=== PATIENT | female | born 1950 | race Caucasian/White ===

== ENCOUNTER 2017-01-06 23:16 | Emergency (ER) | payer OTHER ==
[~2017-01-06] VITALS: Ht 160 cm; Wt 108.9 kg
[2017-01-06 23:17] VITALS: BP 191/105
[2017-01-06] MEDS ORDERED: IPRATROPIUM 0.5MG/ALBUTEROL 2.5MG INH SOL UD 3ML (DUONEB)(J7620) NEB ONE (23:30)
[2017-01-06] MEDS ORDERED: methylPREDNISolone INJ 125 MG/2 ML VIAL (J2930) IV ONE (23:30)
[2017-01-06] MEDS ORDERED: ALBU17IN INH (23:33)
[2017-01-06] MEDS ORDERED: ADV250INH INH (23:33)
[2017-01-06 23:56] LABS: BASO # 0.1 K/mm3 (0.0-0.2); BASO % 0.7 % (0.0-1.0); EOS # 0.2 K/mm3 (0.0-0.50); EOS % 2.8 % (0.0-3.0); LARGE UNSTAINED CELL # 0.2 K/mm3 (0.0-0.4); LARGE UNSTAINED CELL % 2.3 % (0.0-4.0); LYMPH # 4.3 K/mm3 (1.5-4.5); LYMPH % 47.8 % (24.0-44.0); MEAN CORPUSCULAR HEMOGLOBIN 28.6 pg (27.0-33.0); MEAN CORPUSCULAR HGB CONC 32.3 g/dl (32.0-36.5); MEAN CORPUSCULAR VOLUME 88.4 fl (80.0-96.0); MONO # 0.2 K/mm3 (0.0-0.8); MONO % 2.8 % (0.0-5.0); NEUTROPHILS # 3.7 K/mm3 (1.8-7.7); NEUTROPHILS % 43.4 % (36.0-66.0); PLATELET COUNT, AUTOMATED 240 k/mm3 (150-450); RED CELL DISTRIBUTION WIDTH 12.6 % (11.5-14.5); WHITE BLOOD COUNT 8.5 K/mm3 (4.0-10.0)
[2017-01-07] MEDS ORDERED: IPRATROPIUM 0.5MG/ALBUTEROL 2.5MG INH SOL UD 3ML (DUONEB)(J7620) NEB ONE
[2017-01-07 00:13] LABS: ANION GAP 11 MEQ/L (8-16); BLOOD UREA NITROGEN 14 MG/DL (7-18); CALCIUM LEVEL 9.1 MG/DL (8.8-10.2); CARBON DIOXIDE LEVEL 25 MEQ/L (21-32); CHLORIDE LEVEL 103 MEQ/L (98-107); CREATININE FOR GFR 0.98 MG/DL (0.55-1.02); GLOMERULAR FILTRATION RATE > 60.0 (>45); GLUCOSE, FASTING 208 MG/DL (80-110); POTASSIUM SERUM 3.5 MEQ/L (3.5-5.1); SODIUM LEVEL 139 MEQ/L (136-145)
--- NOTE | 2017-01-07 09:30 | REP ---
AP PORTABLE CHEST: 01/06/2017. Comparison: 10/27/2014 chest x-ray. Clinical history: Dyspnea and cough. Known asthma. Findings. Portable chest shows the lungs hyperinflated consistent with COPD. Some underlying mild interstitial chronic change. Heart size borderline for portable technique with this degree of hyperinflation. There is some venous hypertension. There is no hugo edema, effusion or dense consolidation. The aorta is mildly tortuous. Airway intact. No free air under the diaphragm. Impression: 1. Borderline heart size with some venous hypertension. There is underlying fibrosis. This makes early interstitial edema difficult to exclude but certainly no hugo edema, dense consolidation or definite effusion. 2. Tortuous calcified aorta. Signed by Jaime Perez MD 01/07/2017 10:52 A
--- NOTE | 2017-01-07 21:04 | ECGEPIP ---
Stationary ECG Study [facility] - ED Test Date: 2017-01-06 Pat Name: AMY DE LA CRUZ Department: Room: - Gender: F Cherry Cutter: carmela : 1950 Requested By: JOVITA Curran Order Number: [id number] Reading MD: Anna Marie Henning Measurements Intervals Gray Rate: 119 P: 68 [place]: 176 QRS: -9 QRSD: 137 T: 53 QT: 347 QTc: 488 Interpretive Statements SINUS TACHYCARDIA RIGHT BUNDLE BRANCH BLOCK NEW 10/27/14 Electronically Signed On 01-07-2017 21:04:06 EDT by Anna Marie Henning
== END 2017-01-07 01:54 | disposition home or self-care (01) ==
LOC: M ED 23:16
DX: J45.21 Mild intermittent asthma with (acute) exacerbation (principal); Z88.8 Allergy status to other drugs, medicaments and biological substances; Z88.2 Allergy status to sulfonamides; Z79.899 Other long term (current) drug therapy
CPT/HCPCS: 36415; 71010; 80048; 83605; 83880; 85025; 93005; 93041; 94640; 94760; 96374; 99284; J2930

== ENCOUNTER → 2017-06-14 | Outpatient (REF) | payer OTHER ==
[~2017-06-14] MED LIST: ADV250INH INH; ALBU17IN INH
== END ==
LOC: M SFHCWAGY 09:08
PROVIDERS: ATTEND Nurse Practitioner Women's Health
DX: Z12.4 Encounter for screening for malignant neoplasm of cervix (principal); N88.8 Other specified noninflammatory disorders of cervix uteri

== ENCOUNTER → 2017-06-26 | Outpatient (REF) | payer OTHER ==
[2017-06-26 12:22] LABS: MEAN CORPUSCULAR HEMOGLOBIN 28.5 pg (27.0-33.0); MEAN CORPUSCULAR HGB CONC 32.1 g/dl (32.0-36.5); MEAN CORPUSCULAR VOLUME 88.7 fl (80.0-96.0); RED CELL DISTRIBUTION WIDTH 12.8 % (11.5-14.5); WHITE BLOOD COUNT 7.9 10^3/uL (4.0-10.0)
[2017-06-26 13:18] LABS: ALBUMIN/GLOBULIN RATIO 1.14 (1.00-1.93); ALKALINE PHOSPHATASE 65 U/L (45-117); ALT/SGPT 73 U/L (12-78); ANION GAP 7 MEQ/L (8-16); AST/SGOT 42 U/L (15-37); BILIRUBIN,TOTAL 0.6 MG/DL (0.2-1.0); BLOOD UREA NITROGEN 11 MG/DL (7-18); CALCIUM LEVEL 9.7 MG/DL (8.8-10.2); CARBON DIOXIDE LEVEL 28 MEQ/L (21-32); CHLORIDE LEVEL 105 MEQ/L (98-107); CHOLESTEROL LEVEL 205 MG/DL (<200); GLOMERULAR FILTRATION RATE > 60.0 (>45); GLUCOSE, FASTING 104 MG/DL (80-110); POTASSIUM SERUM 3.9 MEQ/L (3.5-5.1); SODIUM LEVEL 140 MEQ/L (136-145); TOTAL PROTEIN 7.5 GM/DL (6.4-8.2); TRIGLYCERIDES LEVEL 101 MG/DL (<150)
== END ==
LOC: M SFHCPLAZ 08:10
PROVIDERS: ATTEND Family Medicine
DX: D50.9 Iron deficiency anemia, unspecified (principal); I10 Essential (primary) hypertension; E78.5 Hyperlipidemia, unspecified

== ENCOUNTER → 2018-06-04 | Outpatient (CLI) | payer MEDICARE, OTHER ==
[2018-06-04 13:40] LABS: HEMATOCRIT 43.7 % (36.0-47.0); HEMOGLOBIN 14.5 g/dl (12.0-15.5); MEAN CORPUSCULAR HEMOGLOBIN 28.6 pg (27.0-33.0); MEAN CORPUSCULAR HGB CONC 33.2 g/dl (32.0-36.5); MEAN CORPUSCULAR VOLUME 86.2 fl (80.0-96.0); PLATELET COUNT, AUTOMATED 218 10^3/uL (150-450); RED BLOOD COUNT 5.07 10^6/uL (4.00-5.40); RED CELL DISTRIBUTION WIDTH 12.4 % (11.5-14.5); RETIC HEMOGLOBIN EQUIVALENT 33.5 pg (24-36); RETICULOCYTE # 76.1 10^9/L (17-77); RETICULOCYTE % 1.5 % (0.5-1.5); WHITE BLOOD COUNT 7.2 10^3/uL (4.0-10.0)
[2018-06-04 15:09] LABS: ALBUMIN 4.1 GM/DL (3.2-5.2); ALBUMIN/GLOBULIN RATIO 1.17 (1.00-1.93); ALKALINE PHOSPHATASE 73 U/L (45-117); ALT/SGPT 66 U/L (12-78); ANION GAP 8 MEQ/L (8-16); AST/SGOT 39 U/L (7-37); BILIRUBIN,TOTAL 0.7 MG/DL (0.2-1.0); BLOOD UREA NITROGEN 13 MG/DL (7-18); CALCIUM LEVEL 9.2 MG/DL (8.8-10.2); CARBON DIOXIDE LEVEL 28 MEQ/L (21-32); CHLORIDE LEVEL 105 MEQ/L (98-107); CHOLESTEROL LEVEL 180 MG/DL (<200); CHOLESTEROL RISK RATIO 3.829 (<5); CREATININE FOR GFR 0.82 MG/DL (0.55-1.30); FERRITIN 145 NG/ML (8-252); GLOMERULAR FILTRATION RATE > 60.0 (>45); GLUCOSE, FASTING 97 MG/DL (70-100); HDL CHOLESTEROL 47 MG/DL (>40); IRON (FE) 114 UG/DL (50-170); LDL CHOLESTEROL 108.2 MG/DL (<100); NON-HDL-C 133 MG/DL; PERCENT SATURATION 26.3 % (13.2-45.0); POTASSIUM SERUM 4.1 MEQ/L (3.5-5.1); SODIUM LEVEL 141 MEQ/L (136-145); TOTAL IRON BINDING CAPACITY 434 UG/DL (250-450); TOTAL PROTEIN 7.6 GM/DL (6.4-8.2); TRIGLYCERIDES LEVEL 124 MG/DL (<150)
[2018-06-04 19:35] LABS: ESTIMATED AVERAGE GLUCOSE 117 MG/DL (60-110); HEMOGLOBIN A1c 5.7 %
== END ==
LOC: M WUC 09:46
DX: D50.9 Iron deficiency anemia, unspecified (principal); E78.5 Hyperlipidemia, unspecified; Z79.899 Other long term (current) drug therapy
CPT/HCPCS: 83550

== ENCOUNTER → 2018-06-28 | Outpatient (CLI) | payer MEDICARE, OTHER | LOC: M WHC 11:02 | DX: Z13.820 Encounter for screening for osteoporosis (principal); Z78.0 Asymptomatic menopausal state | CPT/HCPCS: 77080 ==

== ENCOUNTER → 2019-07-02 | Outpatient (CLI) | payer MEDICARE ==
--- NOTE | 2019-07-02 11:25 | REPMRS ---
Patient History The patient states she had a clinical breast exam in 07/2019. Patient is postmenopausal, has history of high-risk lesion on a previous biopsy at age 58, has history of high-risk lesion on a previous biopsy at age 58, and has history of hyperplasia atypia at age 58. Family history of breast cancer at age 67 in mother. High risk stereotactic core biopsy of the right breast, October 18, 2009. No Hormone Replacement Therapy 3D TOMOSYNTHESIS WAS PERFORMED. Digital Woman Screen Mammo: July 02, 2019 - Exam #: [id number] Bilateral CC and MLO view(s) were taken. Technologist: Asya Mayberry, Technologist Prior study comparison: June 26, 2018, bilateral digital mammo screening bilat, performed at [facility]. FINDINGS: The breast tissue is heterogeneously dense. This may lower the sensitivity of mammography. There is a fairly symmetric fibroglandular pattern in both breasts. There has been no interval development of masses, areas of architectural distortion or clusters of microcalcifications typical of malignancy. Bilateral small nodules are essentially unchanged. No significant changes when compared with prior studies. Assessment: BI-RADS/ACR category 2 mammogram. Benign Findings. Recommendation Routine screening mammogram of both breasts in 1 year (for women over age 40). This mammogram was interpreted with the aid of an FDA-approved computer-aided dectection system. THE LIFETIME RISK OF BREAST CANCER IS 28.6%, THEREFORE SUPPLEMENTAL SCREENING MRI OF THE BREASTS IS RECOMMENDED IN 6 MONTHS. Electronically Signed By: Wu Anthony MD 07/02/19 [id number]
== END ==
LOC: M WHC 08:39
PROVIDERS: ATTEND Nurse Practitioner Women's Health
DX: Z01.419 Encounter for gynecological examination (general) (routine) without abnormal findings (principal); Z12.31 Encounter for screening mammogram for malignant neoplasm of breast; Z78.0 Asymptomatic menopausal state; Z80.3 Family history of malignant neoplasm of breast
CPT/HCPCS: 77063; 77067; G0101; G0463

== ENCOUNTER → 2019-12-12 | Outpatient (REF) | payer MEDICARE ==
[~2019-12-12] MED LIST changes: +AZEL0.05 OU; +D 202000 PO; +FLUT1BLS2 INH; +HYDR25TAB PO; +OYST1TAB PO; +PROAAER10 INH; +VITACHTA PO
[2019-12-12 12:35] LABS: BLOOD UREA NITROGEN 16 MG/DL (7-18); CREATININE FOR GFR 0.78 MG/DL (0.55-1.30); GLOMERULAR FILTRATION RATE > 60.0 (>45)
== END ==
LOC: M PLALAB 09:59
PROVIDERS: ATTEND Nurse Practitioner Women's Health
DX: Z01.812 Encounter for preprocedural laboratory examination (principal)

== ENCOUNTER → 2020-06-09 | Outpatient (REF) | payer MEDICARE ==
[2020-06-09 15:12] LABS: ALBUMIN 3.9 GM/DL (3.2-5.2); ALT/SGPT 52 U/L (12-78); BILIRUBIN,TOTAL 0.7 MG/DL (0.2-1.0); BLOOD UREA NITROGEN 16 MG/DL (7-18); CALCIUM LEVEL 9.4 MG/DL (8.8-10.2); CARBON DIOXIDE LEVEL 29 MEQ/L (21-32); CHLORIDE LEVEL 106 MEQ/L (98-107); CHOLESTEROL LEVEL 186 MG/DL (<200); CHOLESTEROL RISK RATIO 3.795 (<5); CREATININE FOR GFR 0.81 MG/DL (0.55-1.30); GLOMERULAR FILTRATION RATE > 60.0 (>45); GLUCOSE, FASTING 93 MG/DL (70-100); HDL CHOLESTEROL 49 MG/DL (>40); LDL CHOLESTEROL 117 MG/DL (<100); NON-HDL-C 137 MG/DL; SODIUM LEVEL 139 MEQ/L (136-145); TOTAL PROTEIN 7.3 GM/DL (6.4-8.2); TRIGLYCERIDES LEVEL 99 MG/DL (<150)
== END ==
LOC: M LABDRWAD 09:33
PROVIDERS: ATTEND Family Medicine
DX: E78.5 Hyperlipidemia, unspecified (principal); I11.9 Hypertensive heart disease without heart failure

== ENCOUNTER → 2020-07-05 | Outpatient (CLI) | payer MEDICARE ==
--- NOTE | 2020-07-05 10:09 | REPMRS ---
Patient History The patient states she had a clinical breast exam in 2019. Family history of breast cancer at age 67 in mother. High risk stereotactic core biopsy of the right breast, October 18, 2009. No Hormone Replacement Therapy 3D TOMOSYNTHESIS WAS PERFORMED. LUL Alanis. Digital Woman Screen Mammo: July 05, 2020 - Exam #: [id number] Bilateral CC and MLO view(s) were taken. Technologist: Sara Guan, Technologist Prior study comparison: July 02, 2019, bilateral digital woman screen mammo performed at [facility]. June 26, 2018, bilateral digital mammo screening bilat, performed at [facility]. FINDINGS: The breast tissue is heterogeneously dense. This may lower the sensitivity of mammography. There has been no change in the appearance of the mammogram from the prior studies. There is a moderate amount of residual fibroglandular tissue which is fairly symmetric. There is no interval development of dominant mass, areas of architectural distortion, or clustered microcalcification typical of malignancy. Assessment: BI-RADS/ACR category 1 mammogram. Negative Mammogram. Recommendation Routine screening mammogram in 1 year (for women over age 40). This mammogram was interpreted with the aid of an FDA-approved computer-aided dectection system. THE LIFETIME RISK OF BREAST CANCER IS 27.4%, THEREFORE SUPPLEMENTAL SCREENING MRI OF THE BREASTS IS RECOMMENDED IN 6 MONTHS. Electronically Signed By: Wu Anthony MD 07/05/20 [id number]
== END ==
LOC: M WHC 08:41
PROVIDERS: ATTEND Nurse Practitioner Women's Health
DX: Z12.31 Encounter for screening mammogram for malignant neoplasm of breast (principal); Z80.3 Family history of malignant neoplasm of breast
CPT/HCPCS: 77063; 77067; G0463

== ENCOUNTER → 2022-04-10 | Outpatient (CLI) | payer MEDICARE ==
[~2022-04-10] MED LIST changes: +HYDR-3490 PO; -HYDR25TAB PO
== END ==
LOC: M WUC 10:48
PROVIDERS: ATTEND Physician Assistant Medical
DX: M85.431 Solitary bone cyst, right ulna and radius (principal); M25.531 Pain in right wrist

== ENCOUNTER → 2022-07-06 | Outpatient (REF) | payer MEDICARE ==
[2022-07-06 12:56] LABS: BASO # 0.1 10^3/uL (0.0-0.2); BASO % 0.9 % (0.0-1.0); EOS # 0.1 10^3/uL (0.0-0.5); HEMOGLOBIN 14.4 g/dl (12.0-15.5); MEAN CORPUSCULAR HEMOGLOBIN 28.3 pg (27.0-33.0); MEAN CORPUSCULAR VOLUME 88.6 fl (80.0-96.0); MONO # 0.4 10^3/uL (0.0-0.8); MONO % 6.3 % (2.0-8.0); NEUTROPHILS # 4.4 10^3/uL (1.5-8.5); NEUTROPHILS % 62.7 % (36.0-66.0); PLATELET COUNT, AUTOMATED 202 10^3/uL (150-450); RED BLOOD COUNT 5.08 10^6/uL (4.00-5.40)
[2022-07-06 13:33] LABS: HEMOGLOBIN A1c 5.7 %
[2022-07-06 13:43] LABS: ALBUMIN 4.1 GM/DL (3.2-5.2); ALT/SGPT 60 U/L (12-78); BILIRUBIN,TOTAL 0.7 MG/DL (0.2-1.0); BLOOD UREA NITROGEN 14 MG/DL (7-18); CALCIUM LEVEL 9.9 MG/DL (8.8-10.2); CARBON DIOXIDE LEVEL 29 MEQ/L (21-32); CHLORIDE LEVEL 103 MEQ/L (98-107); CHOLESTEROL LEVEL 187 MG/DL (<200); CHOLESTEROL RISK RATIO 3.666 (<5); CREATININE FOR GFR 0.84 MG/DL (0.55-1.30); FERRITIN 222 NG/ML (8-252); FREE T4 1.03 NG/DL (0.76-1.46); GLOMERULAR FILTRATION RATE > 60.0 (>45); GLUCOSE, FASTING 114 MG/DL (70-100); HDL CHOLESTEROL 51 MG/DL (>40); IRON (FE) 114 UG/DL (50-170); LDL CHOLESTEROL 112 MG/DL (<100); NON-HDL-C 136 MG/DL; PERCENT SATURATION 26.5 % (13.2-45.0); POTASSIUM SERUM 3.7 MEQ/L (3.5-5.1); SODIUM LEVEL 137 MEQ/L (136-145); TOTAL IRON BINDING CAPACITY 430 UG/DL (250-450); TOTAL PROTEIN 7.3 GM/DL (6.4-8.2); TRIGLYCERIDES LEVEL 119 MG/DL (<150)
== END ==
LOC: M SFHCADAM 08:43
PROVIDERS: ATTEND Physician Assistant
DX: I10 Essential (primary) hypertension (principal); E78.5 Hyperlipidemia, unspecified; Z68.41 Body mass index [BMI] 40.0-44.9, adult; D50.9 Iron deficiency anemia, unspecified; F41.9 Anxiety disorder, unspecified

== ENCOUNTER → 2023-02-12 | Outpatient (CLI) | payer MEDICARE | LOC: M WHC 11:11 | PROVIDERS: ATTEND Nurse Practitioner Family | DX: Z12.31 Encounter for screening mammogram for malignant neoplasm of breast (principal) ==

== ENCOUNTER → 2023-07-12 | Outpatient (CLI) | payer MEDICARE | LOC: M ADAMS 09:49 | PROVIDERS: ATTEND Family Medicine | DX: M25.531 Pain in right wrist (principal) ==

== ENCOUNTER → 2023-07-12 | Outpatient (REF) | payer MEDICARE ==
[2023-07-12 13:03] LABS: HEMATOCRIT 46.6 % (36.0-47.0); HEMOGLOBIN 15.2 g/dl (12.0-15.5); MEAN CORPUSCULAR HEMOGLOBIN 28.7 pg (27.0-33.0); MEAN CORPUSCULAR HGB CONC 32.6 g/dl (32.0-36.5); MEAN CORPUSCULAR VOLUME 87.9 fl (80.0-96.0); PLATELET COUNT, AUTOMATED 221 10^3/uL (150-450)
[2023-07-12 13:29] LABS: HEMOGLOBIN A1c 5.3 % (4.0-6.0)
[2023-07-12 13:42] LABS: ALBUMIN 4.2 G/DL (3.2-5.2); ALKALINE PHOSPHATASE 80 U/L (46-116); ALT/SGPT 75 U/L (7.0-40); AST/SGOT 52 U/L (<34); BILIRUBIN,TOTAL 0.9 MG/DL (0.3-1.2); BLOOD UREA NITROGEN 17 MG/DL (9-23); CARBON DIOXIDE LEVEL 30 MMOL/L (20-31); CHLORIDE LEVEL 101 MMOL/L (98-107); CHOLESTEROL LEVEL 183 MG/DL (<200); CREATININE FOR GFR 0.84 MG/DL (0.55-1.30); GLOMERULAR FILTRATION RATE > 60.0 (>39); GLUCOSE, FASTING 104 MG/DL (74-106); HDL CHOLESTEROL 50.8 MG/DL (>40); LDL CHOLESTEROL 108.4 MG/DL (<100); NON-HDL-C 132.2 MG/DL; POTASSIUM SERUM 3.9 MMOL/L (3.5-5.1); SODIUM LEVEL 138 MMOL/L (136-145); TOTAL PROTEIN 7.6 G/DL (5.7-8.2); TRIGLYCERIDES LEVEL 119 MG/DL (<150)
== END ==
LOC: M SFHCADAM 09:47
PROVIDERS: ATTEND Family Medicine
DX: E78.5 Hyperlipidemia, unspecified (principal); R73.03 Prediabetes; Z68.41 Body mass index [BMI] 40.0-44.9, adult

== ENCOUNTER → 2023-07-27 | Outpatient (CLI) | payer MEDICARE | LOC: M RAD 10:00 | PROVIDERS: ATTEND Family Medicine | DX: M79.89 Other specified soft tissue disorders (principal) ==

== ENCOUNTER → 2024-02-18 | Outpatient (CLI) | payer MEDICARE | LOC: M WHC 07:24 | PROVIDERS: ATTEND Nurse Practitioner Family | DX: Z12.31 Encounter for screening mammogram for malignant neoplasm of breast (principal); R92.323 Mammographic fibroglandular density, bilateral breasts ==

== ENCOUNTER → 2024-02-18 | Outpatient (REF) | payer MEDICARE | LOC: M SFHCWAGY 10:24 | PROVIDERS: ATTEND Nurse Practitioner Family | DX: Z12.4 Encounter for screening for malignant neoplasm of cervix (principal); N95.2 Postmenopausal atrophic vaginitis | CPT/HCPCS: 87624; G0123 ==

== ENCOUNTER → 2024-07-15 | Outpatient (CLI) | payer MEDICARE ==
[2024-07-15 15:09] LABS: HEMATOCRIT 42.7 % (36.0-47.0); HEMOGLOBIN 14.1 g/dl (12.0-15.5); MEAN CORPUSCULAR HEMOGLOBIN 29.4 pg (27.0-33.0); MEAN CORPUSCULAR VOLUME 89.1 fl (80.0-96.0); PLATELET COUNT, AUTOMATED 226 10^3/uL (150-450); RED BLOOD COUNT 4.79 10^6/uL (4.00-5.40); WHITE BLOOD COUNT 7.2 10^3/uL (4.0-10.0)
[2024-07-15 15:37] LABS: ALBUMIN 3.9 G/DL (3.2-5.2); ALKALINE PHOSPHATASE 79 U/L (46-116); ALT/SGPT 52 U/L (7.0-40); AST/SGOT 33 U/L (<34); BILIRUBIN,TOTAL 0.8 MG/DL (0.3-1.2); BLOOD UREA NITROGEN 15 MG/DL (9-23); CALCIUM LEVEL 10.1 MG/DL (8.3-10.6); CARBON DIOXIDE LEVEL 30 MMOL/L (20-31); CHLORIDE LEVEL 104 MMOL/L (98-107); CHOLESTEROL LEVEL 202 MG/DL (<200); CHOLESTEROL RISK RATIO 4.28 (<5); CREATININE FOR GFR 0.81 MG/DL (0.55-1.30); FREE T4 1.17 NG/DL (0.89-1.76); GLOMERULAR FILTRATION RATE > 60.0 (>39); GLUCOSE, FASTING 99 MG/DL (74-106); HDL CHOLESTEROL 47.1 MG/DL (>40); HEMOGLOBIN A1c 5.6 % (4.0-6.0); IRON (FE) 102 UG/DL (50-170); LDL CHOLESTEROL 130.3 MG/DL (<100); NON-HDL-C 154.9 MG/DL; PERCENT SATURATION 25.6 % (13.2-45.0); POTASSIUM SERUM 4.1 MMOL/L (3.5-5.1); SODIUM LEVEL 139 MMOL/L (136-145); TOTAL IRON BINDING CAPACITY 399 UG/DL (250-425); TOTAL PROTEIN 7.4 G/DL (5.7-8.2); TRIGLYCERIDES LEVEL 123 MG/DL (<150)
[2024-07-15 15:38] LABS: FERRITIN 99.2 NG/ML (7.3-270.7); THYROID STIMULATING HORMONE 1.725 uIU/ML (0.55-4.78)
== END ==
LOC: M PLALAB 10:43
PROVIDERS: ATTEND Family Medicine
DX: I10 Essential (primary) hypertension (principal); D50.9 Iron deficiency anemia, unspecified

== ENCOUNTER → 2025-05-05 | Outpatient (CLI) | payer MEDICARE ==
[~2025-05-05] MED LIST changes: -ADV250INH INH; +ADVA1AER9 INH
[2025-05-05 14:29] LABS: PLATELET COUNT, AUTOMATED 189 10^3/uL (150-450)
[2025-05-05 14:36] LABS: ALT/SGPT 30.0 U/L (7.0-40); AST/SGOT 27.0 U/L (<34); CALCIUM LEVEL 10.0 MG/DL (8.3-10.6); CARBON DIOXIDE LEVEL 28.0 MMOL/L (20-31); CHLORIDE LEVEL 101.0 MMOL/L (98-107); CHOLESTEROL LEVEL 174.0 MG/DL (<200); CHOLESTEROL RISK RATIO 3.35 (<5); CREATININE FOR GFR 0.93 MG/DL (0.55-1.30); FREE T4 1.14 NG/DL (0.89-1.76); GLOMERULAR FILTRATION RATE 65.3 (>39); LDL CHOLESTEROL 97.4 MG/DL (<100); NON-HDL-C 122.2 MG/DL; POTASSIUM SERUM 4.1 MMOL/L (3.5-5.1); SODIUM LEVEL 140.0 MMOL/L (136-145); TRIGLYCERIDES LEVEL 124.0 MG/DL (<150)
[2025-05-05 14:42] LABS: ESTIMATED AVERAGE GLUCOSE 111.0 MG/DL (60-110)
== END ==
LOC: M PLALAB 09:48
PROVIDERS: ATTEND Family Medicine
DX: K76.0 Fatty (change of) liver, not elsewhere classified (principal); E66.01 Morbid (severe) obesity due to excess calories; J45.998 Other asthma; R73.03 Prediabetes

== ENCOUNTER → 2025-07-09 | Outpatient (CLI) | payer MEDICARE | LOC: M WHC 09:13 | PROVIDERS: ATTEND Physician Assistant | DX: Z13.820 Encounter for screening for osteoporosis (principal); Z12.31 Encounter for screening mammogram for malignant neoplasm of breast; R92.323 Mammographic fibroglandular density, bilateral breasts ==

== ENCOUNTER → 2025-07-09 | Outpatient (CLI) | payer MEDICARE | LOC: M WHC 09:12 | PROVIDERS: ATTEND Physician Assistant | DX: Z12.31 Encounter for screening mammogram for malignant neoplasm of breast (principal); R92.323 Mammographic fibroglandular density, bilateral breasts ==

== ENCOUNTER → 2025-07-23 | Outpatient (REF) | payer MEDICARE ==
[2025-07-23 14:01] LABS: PLATELET COUNT, AUTOMATED 236 10^3/uL (150-450)
[2025-07-23 14:14] LABS: ALT/SGPT 31.0 U/L (7.0-40); AST/SGOT 30.0 U/L (<34); CALCIUM LEVEL 10.1 MG/DL (8.3-10.6); CARBON DIOXIDE LEVEL 29.0 MMOL/L (20-31); CHLORIDE LEVEL 102.0 MMOL/L (98-107); CHOLESTEROL LEVEL 193.0 MG/DL (<200); CHOLESTEROL RISK RATIO 3.66 (<5); CREATININE FOR GFR 0.97 MG/DL (0.55-1.30); GLOMERULAR FILTRATION RATE 62.1 (>39); IRON (FE) 52.0 UG/DL (50-170); LDL CHOLESTEROL 125.0 MG/DL (<100); NON-HDL-C 140.4 MG/DL; PERCENT SATURATION 12.3 % (13.2-45.0); POTASSIUM SERUM 4.1 MMOL/L (3.5-5.1); SODIUM LEVEL 141.0 MMOL/L (136-145); TRIGLYCERIDES LEVEL 77.0 MG/DL (<150)
[2025-07-23 14:15] LABS: FREE T4 1.28 NG/DL (0.89-1.76)
[2025-07-23 14:28] LABS: CREATININE, URINE 78.2 MG/DL; MALB URINE SIEMENS 106.0 MG/L; MAU/CREAT RATIO 135.5 MCG/MG (0.0-30.0)
[2025-07-23 14:56] LABS: ESTIMATED AVERAGE GLUCOSE 114.0 MG/DL (60-110)
== END ==
LOC: M SFHCADAM 10:14
PROVIDERS: ATTEND Family Medicine
DX: D50.9 Iron deficiency anemia, unspecified (principal); F41.9 Anxiety disorder, unspecified; R73.03 Prediabetes; I10 Essential (primary) hypertension; E78.5 Hyperlipidemia, unspecified